=== PATIENT | male | born 1940 | race Caucasian/White ===

== ENCOUNTER 2017-07-10 08:20 | Day surgery (SDC) | payer MEDICARE, OTHER ==
[2017-07-10] MEDS ORDERED: Sodium Chloride 0.9% 10 ML Syringe FLUSH PRN (09:00)
[2017-07-10 10:58] VITALS: BP 169/91
--- NOTE | 2017-07-10 14:35 | OR ---
DATE OF PROCEDURE: 07/10/2017 POSTOPERATIVE CARE: Postoperative care will be provided mainly at the [address] [place] [address] [facility] in conjunction with [facility]. PREOPERATIVE DIAGNOSIS: Cataract, right eye. PREOPERATIVE DIAGNOSIS: Cataract, right eye. PROCEDURE: Cataract extraction, phacoemulsification with intraocular lens placement, right eye. ANESTHESIA: Topical and intracameral. ESTIMATED BLOOD LOSS: Minimal. COMPLICATIONS: None. PATHOLOGY SPECIMENS: None. SURGICAL FINDINGS: None. INDICATION FOR PROCEDURE: The patient is a 77-year-old male with history of a visually significant cataract in the right eye, which interfered with activities of daily living. This consisted of a nuclear sclerosis cataract. Following careful discussion of the risks, benefits and alternatives to cataract extraction with intraocular lens placement including blindness and , the patient elected to proceed, and informed, written consent was obtained prior to the procedure. DESCRIPTION OF THE PROCEDURE: The patient was previously identified, and a bryant placed above the right eye. All sources, including the patient, indicated that the right eye was the correct eye. The patient was subsequently taken to the operating room where standard monitors were applied. The patient was then prepped and draped in the usual sterile fashion for ophthalmic surgery. Attention was first directed at the 12 o'clock position where a paracentesis port was fashioned. Shugar solution followed by Viscoat was instilled into the eye. Attention was then directed to the 8:30 position where a triplanar incision was made in a near-clear manner using a keratome. A continuous capsulorrhexis was then made using a combination of the cystotome and Utrata forceps. Hydrodissection was achieved using a balanced salt solution, and the lens rotated nicely. Phacoemulsification was then done using a modified [id number]-[id number] technique without complication. Phaco time was 7.69 CDE. The remaining cortex was removed using the irrigation/aspiration handpiece. Provisc was then instilled into the eye. A Technis lens, model [id number], at 20.5 diopters was then placed in the capsular bag using an [place] injector. The remaining viscoelastic was removed using the irrigation/aspiration forceps. All wounds were then checked and found to be watertight. The lid speculum and drapes were removed. Maxitrol ointment was placed in the patient's right eye, and the eye was shielded. The patient tolerated the procedure well. The patient was instructed to follow up tomorrow. All needle and sponge counts were correct at the end of the procedure. Eduarda Oneil MD /[id number]
== END 2017-07-10 10:55 | disposition home or self-care (01) ==
LOC: JP.SDS 08:20
PROVIDERS: ATTEND Ophthalmology
DX: H25.11 Age-related nuclear cataract, right eye (principal); I10 Essential (primary) hypertension; G47.33 Obstructive sleep apnea (adult) (pediatric); I48.91 Unspecified atrial fibrillation
CPT/HCPCS: 66984; J7050; C1780

== ENCOUNTER 2017-07-24 07:09 | Day surgery (SDC) | payer MEDICARE, OTHER ==
[2017-07-24] MEDS ORDERED: Sodium Chloride 0.9% 10 ML Syringe FLUSH PRN (07:30)
[2017-07-24 11:27] VITALS: BP 154/77
--- NOTE | 2017-07-24 12:16 | OR ---
DATE OF PROCEDURE: 07/24/2017 POSTOPERATIVE CARE: Postoperative care will be provided mainly at the [address] [place] [address] [facility] in conjunction with [facility]. PREOPERATIVE DIAGNOSIS: Cataract, left eye. PREOPERATIVE DIAGNOSIS: Cataract, left eye. PROCEDURE: Cataract extraction, phacoemulsification with intraocular lens placement, left eye. ANESTHESIA: Topical and intracameral. ESTIMATED BLOOD LOSS: Minimal. COMPLICATIONS: None. PATHOLOGY SPECIMENS: None. SURGICAL FINDINGS: None. INDICATION FOR PROCEDURE: The patient is a 77-year-old male with history of a visually significant cataract in the left eye, which interfered with activities of daily living. This consisted of a nuclear sclerosis cataract. Following careful discussion of the risks, benefits and alternatives to cataract extraction with intraocular lens placement including blindness and , the patient elected to proceed, and informed, written consent was obtained prior to the procedure. DESCRIPTION OF THE PROCEDURE: The patient was previously identified, and a bryant placed above the left eye. All sources, including the patient, indicated that the left eye was the correct eye. The patient was subsequently taken to the operating room where standard monitors were applied. The patient was then prepped and draped in the usual sterile fashion for ophthalmic surgery. Attention was first directed at the 12 o'clock position where a paracentesis port was fashioned. Shugar solution followed by Viscoat was instilled into the eye. Attention was then directed to the 8:30 position where a triplanar incision was made in a near-clear manner using a keratome. A continuous capsulorrhexis was then made using a combination of the cystotome and Utrata forceps. Hydrodissection was achieved using a balanced salt solution, and the lens rotated nicely. Phacoemulsification was then done using a modified [id number] technique without complication. Phaco time was 12.22 CDE. The remaining cortex was removed using the irrigation/aspiration handpiece. Provisc was then instilled into the eye. A Technis lens, model [id number], at 20.5 diopters was then placed in the capsular bag using an [place] injector. The remaining viscoelastic was removed using the irrigation/aspiration forceps. All wounds were then checked and found to be watertight. The lid speculum and drapes were removed. Maxitrol ointment was placed in the patient's left eye, and the eye was shielded. The patient tolerated the procedure well. The patient was instructed to follow up tomorrow. All needle and sponge counts were correct at the end of the procedure. Eduarda Oneil MD /[id number]
== END 2017-07-24 09:30 | disposition home or self-care (01) ==
LOC: JP.SDS 07:09
PROVIDERS: ATTEND Ophthalmology
DX: H25.12 Age-related nuclear cataract, left eye (principal); I10 Essential (primary) hypertension; G47.33 Obstructive sleep apnea (adult) (pediatric)
CPT/HCPCS: 66984; J7050; C1780

== ENCOUNTER 2021-01-25 14:53 | Emergency (ER) | payer MEDICARE, OTHER ==
[2021-01-25] MEDS ORDERED: Adenosine 6 MG/2 ML SDV IVPUSH ONE ×2 (14:56→15:13)
[2021-01-25] MEDS ORDERED: Sodium Chloride 0.9% 1,000 ML IV SCH (15:00)
--- NOTE | 2021-01-25 15:00 | EDM.PDOC ---
ED HPI GENERAL MEDICAL PROBLEM - General Chief Complaint: Cardiovascular Problem Stated Complaint: SENT OVER FROM CLINIC Time Seen by Provider: 01/25/21 14:57 Source of Information: Reports: Patient, Old Records, Provider History Limitations: Reports: No Limitations - History of Present Illness INITIAL COMMENTS - FREE TEXT/NARRATIVE: 80 yo male was seeing cardiology today at the local [facility] and was found to be presumably in SVT. He is sent to the ER now for cardioversion and further work up. HR reported to be 125/min. Has a pHx of paroxysmal afib. He can just barely appreciate some palpitations, otherwise feels normal. Onset: Unknown/Unsure Location: Reports: Chest Quality: Reports: Other (no pain) Severity: Mild Improves with: Reports: None Worsens with: Reports: None Context: Reports: Other (See HPI) Associated Symptoms: Denies: Chest Pain, Nausea/Vomiting, Shortness of Breath Treatments SUGAR GRINDER: Reports: Other (see below) (none) - Related Data Allergies Allergy/AdvReac Type Severity Reaction Status Date / Time amlodipine [From [facility]] Allergy Swelling Verified 01/25/21 15:02 Home Meds: Home Meds Benazepril [Lotensin] 40 mg PO DAILY 03/28/14 [History] Chondroitin/Glucosamine [Glucosamine-Chondroitin] 2 cap PO DAILY 03/28/14 [History] Warfarin [Coumadin] 7.5 mg PO .[id number] 03/28/14 [History] allopurinoL [Allopurinol] 300 mg PO DAILY 03/28/14 [History] atorvaSTATin [Lipitor] 40 mg PO BEDTIME 03/28/14 [History] Ammonium Lactate [Lac-Hydrin 12% Crm] 1 dose TOP ASDIRECTED 01/25/21 [History] carvediloL [Carvedilol] 25 mg PO BID 01/25/21 [History] Past Medical History HEENT History: Reports: Cataract, Impaired Vision Cardiovascular History: Reports: Afib, High Cholesterol, Hypertension Respiratory History: Reports: Sleep Apnea Gastrointestinal History: Reports: None, Colon Polyp Musculoskeletal History: Reports: Fracture, Gout, Osteoarthritis Endocrine/Metabolic History: Reports: Obesity/BMI 30+ Oncologic (Cancer) History: Reports: Basal Cell Carcinoma Dermatologic History: Reports: None - Infectious Disease History Infectious Disease History: Reports: Chicken Pox, Measles, Mumps - Past Surgical History Head Surgeries/Procedures: Reports: None HEENT Surgical History: Reports: Adenoidectomy, Cataract Surgery, Tonsillectomy Cardiovascular Surgical History: Reports: None Respiratory Surgical History: Reports: None GI Surgical History: Reports: Colonoscopy Endocrine Surgical History: Reports: None Musculoskeletal Surgical History: Reports: None Oncologic Surgical History: Reports: None Dermatological Surgical History: Reports: Skin Biopsy Social & Family History - Family History Family Medical History: No Pertinent Family History - Caffeine Use Caffeine Use: Reports: Coffee ED ROS GENERAL - Review of Systems Review Of Systems: See Below Constitutional: Reports: No Symptoms HEENT: Reports: No Symptoms Respiratory: Reports: No Symptoms Cardiovascular: Reports: Palpitations Endocrine: Reports: No Symptoms GI/Abdominal: Reports: No Symptoms : Reports: No Symptoms Musculoskeletal: Reports: No Symptoms Skin: Reports: No Symptoms Neurological: Reports: No Symptoms ED EXAM, GENERAL - Physical Exam Exam: See Below Exam Limited By: No Limitations General Appearance: Alert, WD/WN, No Apparent Distress, Obese Eye Exam: Bilateral Eye: Normal Inspection Ears: Normal External Exam, Normal Canal, Hearing Grossly Normal Ear Exam: Bilateral Ear: Auricle Normal, Canal Normal Nose: Normal Inspection, No Blood Throat/Mouth: Normal Inspection, Normal Lips, Normal Oropharynx, Normal Voice, No Airway Compromise Head: Atraumatic, Normocephalic Neck: Normal Inspection Respiratory/Chest: No Respiratory Distress, Lungs Clear, Normal Breath Sounds, No Accessory Muscle Use Cardiovascular: Regular Rate, Rhythm, No Edema, Tachycardia GI/Abdominal: Soft, Non-Tender, No Distention Extremities: Normal Inspection, Normal Range of Motion, Non-Tender, No Pedal Edema Neurological: Alert, Oriented, CN II-XII Intact, Normal Cognition, No Motor/Sensory Deficits Psychiatric: Normal Affect, Normal Mood Skin Exam: Warm, Dry, Intact, Normal Color, No Rash #1 Interpretation EKG Date: 01/25/21 Time: 15:05 Rhythm: Other (junctional tachycardia) Rate (Beats/Min): 123 Jackpot: Normal P-Wave: Absent QRS: Other (LAFB) ST-T: Normal QT: Normal Comparison: Change From Previous EKG (sinus rhythm replaced with current rhythm.) Course - Vital Signs Last Recorded V/S: Last Vital Signs Temp 36.3 C 01/25/21 15:01 Pulse 124 H 01/25/21 15:01 Resp 15 01/25/21 15:01 BP 177/122 H 01/25/21 15:01 Pulse Ox 98 01/25/21 15:01 - Orders/Labs/Meds Orders: Active Orders 24 hr Category Date Time Status Cardiac Monitoring [RC] .As Directed Care 01/25/21 14:55 Active Sodium Chloride 0.9% [Normal Saline] 1,000 ml Med 01/25/21 15:00 Active IV ASDIRECTED carvediloL [Coreg] Med 01/25/21 15:58 Once 37.5 mg PO ONETIME ONE Medication Orders Sodium Chloride (Normal Saline) 1,000 mls @ 500 mls/hr IV ASDIRECTED SHAN Last Admin: 01/25/21 15:10 Dose: 500 mls/hr Documented by: MASON Labs: Laboratory Tests 01/25/21 01/25/21 Range/Units 15:06 15:06 Sodium 143 (140-148) mmol/L Potassium 4.6 (3.6-5.2) mmol/L Chloride 104 (100-108) mmol/L Carbon Dioxide 29 (21-32) mmol/L Anion Gap 10.0 (5.0-14.0) mmol/L BUN 16 (7-18) mg/dL Creatinine 1.0 (0.8-1.3) mg/dL Est Cr Clr Drug Dosing 61.85 mL/min Estimated GFR (MDRD) > 60 (>60) Glucose 98 (74-106) mg/dL Calcium 9.4 (8.5-10.1) mg/dL Magnesium 1.9 (1.8-2.4) mg/dL Troponin I < 0.017 (0.000-0.056) ng/mL Meds: Medications Generic Name Dose Route Start Last Admin Trade Name Freq PRN Reason Stop Dose Admin Sodium Chloride 1,000 mls @ 500 mls/hr 01/25/21 15:00 01/25/21 15:10 Normal Saline IV 500 mls/hr ASDIRECTED SHAN Administration Discontinued Medications Generic Name Dose Route Start Last Admin Trade Name Freq PRN Reason Stop Dose Admin Adenosine 6 mg 01/25/21 14:56 01/25/21 15:11 Adenosine 6 Mg/2 Ml Sdv IVPUSH 01/25/21 14:57 6 mg NOW ONE Administration Adenosine 12 mg 01/25/21 15:13 01/25/21 15:21 Adenosine 6 Mg/2 Ml Sdv IVPUSH 01/25/21 15:14 12 mg NOW ONE Administration - Re-Assessments/Exams Free Text/Narrative Re-Assessment/Exam: 01/25/21 15:15 Adenosine 6 mg IV, no change in rhythm Adenosine 12 mg IV, transient conversion 01/25/21 16:00 Free Text/Narrative Re-Assessment/Exam: 01/25/21 16:[address] Fregoso, [facility]. Recommends transfer to [place]. Called and accepted in transfer. Departure - Departure Time of Disposition: 16:25 Disposition: DC/Tfer to Acute Hospital 02 Reason for Transfer *Q: Other Condition: Fair Clinical Impression: SVT (supraventricular tachycardia) Referrals: PCP,None [Primary Care Provider] - Forms: ED Department Discharge Sepsis Event Note (ED) - Focused Exam Vital Signs: Vital Signs Temp Pulse Resp BP Pulse Ox 01/25/21 15:01 36.3 C 124 H 15 177/122 H 98 - My Orders Last 24 Hours: My Active Orders 01/25/21 14:55 Cardiac Monitoring [RC] .As Directed 01/25/21 15:00 Sodium Chloride 0.9% [Normal Saline] 1,000 ml IV ASDIRECTED 01/25/21 15:58 carvediloL [Coreg] 37.5 mg PO ONETIME ONE - Assessment/Plan Last 24 Hours: My Active Orders 01/25/21 14:55 Cardiac Monitoring [RC] .As Directed 01/25/21 15:00 Sodium Chloride 0.9% [Normal Saline] 1,000 ml IV ASDIRECTED 01/25/21 15:58 carvediloL [Coreg] 37.5 mg PO ONETIME ONE
[2021-01-25] MEDS ORDERED: Carvedilol 12.5 MG Tab PO ONE (15:58)
[2021-01-25 17:04] VITALS: BP 164/124; PULSE 123
== END 2021-01-25 17:26 ==
LOC: JP.ED 14:53
DX: I47.1 Supraventricular tachycardia (principal); I48.91 Unspecified atrial fibrillation; E78.00 Pure hypercholesterolemia, unspecified; I10 Essential (primary) hypertension; E66.9 Obesity, unspecified; Z68.30 Body mass index [BMI] 30.0-30.9, adult; Z79.01 Long term (current) use of anticoagulants; Z79.899 Other long term (current) drug therapy; Z88.5 Allergy status to narcotic agent
CPT/HCPCS: 36415; 80048; 83735; 84484; 96374; 99285; A9270; J0153; J7030

== ENCOUNTER 2023-03-21 12:32 | Emergency (ER) | payer MEDICARE ==
[2023-03-21] MEDS ORDERED: Sodium Chloride 0.9% 10 ML Syringe FLUSH PRN (12:39)
[2023-03-21 12:45] LABS: BASOPHILS ABSOLUTE AUTO 0.06 K/uL (0.00-0.10); BASOPHILS PERCENT AUTO 0.8 % (0.1-1.3); EOSINOPHILS ABSOLUTE AUTO 0.06 K/uL (0.00-0.40); EOSINOPHILS PERCENT AUTO 0.8 % (0.0-5.4); HEMATOCRIT 36.8 % (38.4-49.7); HEMOGLOBIN 11.8 g/dL (12.9-16.9); IMMATURE GRAN PERCENT AUTO 0.3 % (0.0-0.7); LYMPHOCYTES ABSOLUTE AUTO 2.14 K/uL (0.8-3.3); LYMPHOCYTES PERCENT AUTO 28.4 % (11.4-47.7); MEAN CORPUSCULAR HEMOGLOBIN 30.3 pg (31.6-35.5); MEAN CORPUSCULAR HGB CONC 32.1 g/dL (31.6-35.5); MEAN CORPUSCULAR VOLUME 94.4 fL (81.4-99.0); MONOCYTES ABSOLUTE AUTO 0.49 K/uL (0.20-0.90); MONOCYTES PERCENT AUTO 6.5 % (3.3-12.6); NEUTROPHILS ABSOLUTE AUTO 4.76 K/uL (1.0-7.6); NEUTROPHILS PERCENT AUTO 63.2 % (40.0-78.1); PLATELET COUNT,PLT 183 K/uL (130-375); WHITE BLOOD CELL COUNT,WBC 7.5 K/uL (3.2-11.0)
[2023-03-21] MEDS ORDERED: Sodium Chloride 0.9% 1,000 ML IV ONE ×2 (12:46→13:50)
[2023-03-21 12:47] LABS: IMMATURE GRAN ABSOLUTE AUTO 0.02 K/uL (0.00-0.23)
[2023-03-21 13:00] LABS: CHLORIDE,CL 109 mmol/L (100-108); GLUCOSE RANDOM 114 mg/dL (74-106)
[2023-03-21 13:01] LABS: BLOOD UREA NITROGEN,BUN 44 mg/dL (7-18); CALCIUM 9.2 mg/dL (8.5-10.1); CREATININE 1.5 mg/dL (0.8-1.3); ESTIMATED GFR 46 mL/min (>60); MAGNESIUM 1.8 mg/dL (1.8-2.4)
[2023-03-21 13:02] LABS: PROTHROMBIN TIME 44.2 sec (9.2-10.6)
[2023-03-21 13:10] LABS: ANION GAP 17.9 mmol/L (5.0-14.0); SODIUM,NA 134 mmol/L (140-148)
[2023-03-21] MEDS ORDERED: Atropine 0.4 MG/ML SDV IVPUSH ONE (13:11)
[2023-03-21 13:13] LABS: CARBON DIOXIDE,CO2 15 mmol/L (21-32); INR 4.8; POTASSIUM,K 7.9 mmol/L (3.6-5.2)
[2023-03-21] MEDS ORDERED: Calcium Gluconate 2 GM in Sodium Chloride 0.9% 100 ML IV ONE ×2 (13:14→13:30)
[2023-03-21] MEDS ORDERED: 50% Dextrose in Water 50 ML Syringe IVPUSH PRN (13:15)
[2023-03-21] MEDS ORDERED: Glucagon,Human Recombinant 1 MG Vial IM PRN (13:15)
[2023-03-21] MEDS ORDERED: Insulin Regular, Human 100 Units/ML 3 ML Vial IVPUSH ONE (13:15)
[2023-03-21] MEDS ORDERED: Albuterol 0.083% 2.5 MG/3 ML Neb Soln NEB ONE (13:15)
[2023-03-21] MEDS ORDERED: Atropine 0.1 MG/ML 10 ML Syringe IVPUSH ONE (13:20)
[2023-03-21] MEDS ORDERED: Sodium Bicarbonate 150 MEQ in Dextrose 5% in Water 1,000 ML IV ONE ×2 (13:50)
[2023-03-21] MEDS ORDERED: 50% Dextrose in Water 50 ML Syringe IVPUSH ONE (13:58)
[2023-03-21] MEDS ORDERED: Calcium Gluconate 10% 1 GM/10 ML SDV IV ONE (14:05)
[2023-03-21 14:44] VITALS: BP 153/75; PULSE 47
== END 2023-03-21 14:20 ==
LOC: JP.ED 12:32
DX: I44.2 Atrioventricular block, complete (principal); R79.1 Abnormal coagulation profile; N17.9 Acute kidney failure, unspecified; R00.1 Bradycardia, unspecified; E87.5 Hyperkalemia; E87.20 Acidosis, unspecified; R55 Syncope and collapse; I48.91 Unspecified atrial fibrillation; E78.00 Pure hypercholesterolemia, unspecified; I10 Essential (primary) hypertension; E66.9 Obesity, unspecified; Z88.0 Allergy status to penicillin; Z79.01 Long term (current) use of anticoagulants; Z88.8 Allergy status to other drugs, medicaments and biological substances; Z68.41 Body mass index [BMI] 40.0-44.9, adult; W18.30XA Fall on same level, unspecified, initial encounter
CPT/HCPCS: 36415; 73560; 80048; 82800; 82947; 83735; 84132; 84484; 85025; 85610; 93005; 94640; 96361; 96365; 96375; 99285; J0461; J0612; J1815; J3490; J7030; 93010; 99291

== ENCOUNTER 2025-06-11 09:32 | Emergency (ER) | payer MEDICARE ==
[2025-06-11 10:31] LABS: BASOPHILS ABSOLUTE AUTO 0.03 K/uL (0.00-0.10); BASOPHILS PERCENT AUTO 0.4 % (0.1-1.3); EOSINOPHILS ABSOLUTE AUTO 0.06 K/uL (0.00-0.40); EOSINOPHILS PERCENT AUTO 0.7 % (0.0-5.4); IMMATURE GRAN ABSOLUTE AUTO 0.03 K/uL (0.00-0.23); IMMATURE GRAN PERCENT AUTO 0.4 % (0.0-0.7); LYMPHOCYTES ABSOLUTE AUTO 0.99 K/uL (0.8-3.3); LYMPHOCYTES PERCENT AUTO 11.9 % (11.4-47.7); MONOCYTES ABSOLUTE AUTO 0.42 K/uL (0.20-0.90); MONOCYTES PERCENT AUTO 5.0 % (3.3-12.6); NEUTROPHILS ABSOLUTE AUTO 6.79 K/uL (1.0-7.6); NEUTROPHILS PERCENT AUTO 81.6 % (40.0-78.1); PLATELET COUNT,PLT 210 K/uL (130-375); RED BLOOD CELL COUNT 5.33 M/uL (4.14-5.76); WHITE BLOOD CELL COUNT,WBC 8.3 K/uL (3.2-11.0)
[2025-06-11 10:52] LABS: A/G RATIO 0.7 (1.2-2.2); ALANINE AMINOTRANSFERASE,ALT 66 U/L (12-78); ASPARTATE AMNIOTRANSFERASE,AST 49 U/L (15-37); BILIRUBIN TOTAL 1.2 mg/dL (0.2-1.0); BLOOD UREA NITROGEN,BUN 29 mg/dL (7-18); CARBON DIOXIDE,CO2 27 mmol/L (21-32); CHLORIDE,CL 105 mmol/L (100-108); CREATININE 1.1 mg/dL (0.8-1.3); EST CRCL DRUG DOSING (CG) 53.24 mL/min; ESTIMATED GFR 66 mL/min (>60); GLUCOSE RANDOM 117 mg/dL (74-106); POTASSIUM,K 4.3 mmol/L (3.6-5.2); PROTEIN TOTAL,TP 7.3 g/dL (6.4-8.2); SODIUM,NA 141 mmol/L (140-148)
[2025-06-11 11:13] LABS: INR 3.1
[2025-06-11] MEDS: Lidocaine 1% with EPINEPHrine 1:100,000 20 ML MDV INJECT ONE (12:40)
[2025-06-11] MEDS: Midazolam 1 MG/ML 5 ML SDV IVPUSH ONE (12:45)
[2025-06-11] MEDS: fentaNYL 50 MCG/ML SDV IVPUSH ONE (15:01)
[2025-06-11 15:52] VITALS: BP 100/76; PULSE 77
== END 2025-06-11 16:50 | disposition other institution (70) ==
LOC: JP.ED 09:32
DX: J93.9 Pneumothorax, unspecified (principal); J90 Pleural effusion, not elsewhere classified; I48.92 Unspecified atrial flutter; I48.19 Other persistent atrial fibrillation; E78.00 Pure hypercholesterolemia, unspecified; I10 Essential (primary) hypertension; E66.9 Obesity, unspecified; Z88.8 Allergy status to other drugs, medicaments and biological substances; Z79.01 Long term (current) use of anticoagulants; Z79.899 Other long term (current) drug therapy; Z68.30 Body mass index [BMI] 30.0-30.9, adult
CPT/HCPCS: 32551; 36415; 71045; 71046; 80053; 83605; 84484; 85025; 85610; 87070; 87205; 96374; 99285; J2004; J2250; J3010

== ENCOUNTER 2025-07-08 15:50 | Emergency (ER) | payer MEDICARE ==
[2025-07-08 22:49] LABS: INR 7.5
[2025-07-09 07:45] LABS: INR 4.9
[2025-07-09 08:02] VITALS: BP 87/62; PULSE 106
== END 2025-07-09 08:47 ==
LOC: JP.ED 15:50
DX: J93.9 Pneumothorax, unspecified (principal); E86.0 Dehydration; I48.91 Unspecified atrial fibrillation; I10 Essential (primary) hypertension; E78.00 Pure hypercholesterolemia, unspecified; E66.9 Obesity, unspecified; Z68.28 Body mass index [BMI] 28.0-28.9, adult; Z87.891 Personal history of nicotine dependence; Z88.8 Allergy status to other drugs, medicaments and biological substances; Z79.01 Long term (current) use of anticoagulants; Z79.899 Other long term (current) drug therapy
CPT/HCPCS: 36415; 71250; 85610; 96360; 99285; A9270; C1751; J2003; J7030